=== PATIENT | male | born 1945 | race Caucasian/White ===

== ENCOUNTER 2022-03-26 08:27 | Emergency (ER) | payer MEDICARE ==
[2022-03-26 10:00] LABS: BASOPHIL 0.6 % (0-2); EOSINOPHIL 0.9 % (0-7); HCT 43.9 % (42.0-52.0); HGB 14.7 g/dl (13.2-18.0); LYMPHOCYTE 11.6 % (15-48); MCH 30.4 pg (25.0-31.0); MCHC 33.5 g/dL (32.0-36.0); MCV 90.9 fL (78.0-100.0); MONOCYTE 12.2 % (0-12); MPV 10.7 fL (6.0-9.5); NEUTROPHIL 74.4 % (41-80); NRBC 0; PLT 190 K/uL (150-400); RBC 4.83 M/uL (4.70-6.00); RDW 12.8 % (11.5-14.0)
[2022-03-26 10:01] LABS: INFLUENZA A NAA NEGATIVE (NEGATIVE)
[2022-03-26 10:05] LABS: CORONAVIRUS 2019 SARS-COV-2 POSITIVE (NEGATIVE)
[2022-03-26 10:13] LABS: BUN/CREAT RATIO (CALC) 15.2 RATIO; C-REACTIVE PROTEIN 6.6 mg/dL (<=0.90); CREATININE 1.45 mg/dL (0.67-1.17); POTASSIUM 3.7 mmol/L (3.5-5.1)
[2022-03-26 10:22] LABS: LACTIC ACID 1.6 mmol/L (0.4-1.9)
[2022-03-26] MEDS ORDERED: PROMETHAZINE-C473 ML PO (11:56)
[2022-03-26] MEDS ORDERED: ZPAK PO (11:56)
== END 2022-03-26 12:30 | disposition home or self-care (01) ==
LOC: FER 08:27
PROVIDERS: Emergency Medicine
DX: U07.1 COVID-19 (principal); I10 Essential (primary) hypertension; Z87.891 Personal history of nicotine dependence
CPT/HCPCS: 36415; 71045; 71275; 80048; 83605; 84145; 85025; 85379; 86140; 87040; 93005; J7030; Q9967; U0002